=== PATIENT | male | born 1990 | race Caucasian/White ===

== ENCOUNTER 2022-08-27 13:22 | Emergency (ER) | payer OTHER ==
[~2022-08-27] VITALS: Ht 182.9 cm; Wt 102.1 kg
--- NOTE | 2022-08-27 13:27 | NUR ---
PATIENT BIBA TO BED 8.
[2022-08-27 13:30] VITALS: BP 139/88
--- NOTE | 2022-08-27 13:52 | NUR ---
Patient being evaluated by physician at bedside.
--- NOTE | 2022-08-27 13:54 | NUR ---
PT REFUSING CT SCAN AT THIS TIME
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
--- NOTE | 2022-08-27 14:00 | NUR ---
AWAKE ALERT X 4 VERY CONVERSANT DENIES ALOC. PD AT BEDSIDE
[2022-08-27 14:18] VITALS: BP 139/88
--- NOTE | 2022-08-27 14:18 | NUR ---
Patient discharged with v/s stable. Written and verbal after care instructions given and explained. Patient verbalized understanding. Ambulatory with steady gait. All questions addressed prior to discharge. Advised to follow up with PMD.
== END 2022-08-27 14:18 | disposition home or self-care (01) ==
LOC: MED 13:22
DX: Z04.1 Encounter for examination and observation following transport accident (principal); V47.5XXA Car driver injured in collision with fixed or stationary object in traffic accident, initial encounter; Y93.89 Activity, other specified; Y92.410 Unspecified street and highway as the place of occurrence of the external cause; Y99.8 Other external cause status
CPT/HCPCS: 93005; 99283